=== PATIENT | female | born 1950 | race Caucasian/White ===

== ENCOUNTER 2016-10-31 09:49 | Day surgery (SDC) | payer MEDICARE ==
[~2016-10-31] VITALS: Ht 165.1 cm; Wt 83.9 kg
[~2016-10-31 09:49] MED LIST: ESTR1VAG VAGINAL; FLUT16SP NS; HYG25 PO; LOSA50TA37 PO; NYST15OI TP; OMEP20TA86 PO; Sodium Chloride LOK Flush 10 mL Syringe IV PRN; VALA1000 PO; fentaNYL-PF 50 mCg/mL 2 mL Inj IVPUSH PRN
[2016-10-31 10:10] VITALS: BP 134/77; PULSE 64; RESP 16; O2SAT 99
[2016-10-31] MEDS: 0.9% Sodium Chloride 1,000 ML IV PRN ×3 (10:51→11:14)
[2016-10-31 11:18] VITALS: BP 116/63; PULSE 63; RESP 14; O2SAT 92
[2016-10-31 11:27] VITALS: BP 113/63; PULSE 67; RESP 14; O2SAT 94
[2016-10-31 11:32] VITALS: BP 121/64; PULSE 58; RESP 16; O2SAT 99
--- NOTE | 2016-10-31 11:47 | ENDO ---
[address] [address] ENDOSCOPY PROCEDURE PATIENT: CAMILLA SALVADOR : 1950 MR#: [id number] ADMIT: 10/31/2016 JOB ID: [id number] DATE: 10/31/2016 PRIMARY PROVIDER: Floyd Gomez MD PROCEDURE: Colonoscopy. INDICATIONS: A 66-year-old female who reports for colon cancer screening. EQUIPMENT: PCF H 180 AL. SEDATION: 1. 3 mg Versed. 2. 100 mcg fentanyl. COMPLICATIONS: None identified. BOWEL PREPARATION: Fair, adequate examination. PROCEDURAL INFORMATION: After the risks and benefits were explained, written and verbal informed consent was obtained. The patient was brought into the endoscopy suite and placed into the left lateral decubitus position. Sedation was achieved using the above-stated medications with the addition of oxygen via nasal cannula. A digital rectal examination was accomplished. No significant pathology appreciated. The scope was introduced into the rectum and advanced under direct visualization to the level of the cecum as identified by the appendiceal orifice and ileocecal valve. The scope was slowly withdrawn to carefully examine the mucosa for any defects or lesions. Retroflexed views were avoided in the rectum. Multiple direct views were made through the dentate line for exclusion of pathology. The colon was decompressed. The scope removed from the patient who tolerated the procedure well. FINDINGS: The patient had extensive large mouthed diverticula throughout the entire colon. No significant polyps, mass lesions or inflammatory features identified. ENDOSCOPIC DIAGNOSES: 1. Mild hemorrhoids. 2. Goncalves-diverticulosis. RECOMMENDATIONS: Repeat colonoscopy 10 years' time, sooner should symptoms warrant.
== END 2016-10-31 23:59 | disposition home or self-care (01) ==
LOC: END 09:49
PROVIDERS: ATTEND Internal Medicine Gastroenterology
DX: Z12.11 Encounter for screening for malignant neoplasm of colon (principal); K57.30 Diverticulosis of large intestine without perforation or abscess without bleeding; K64.9 Unspecified hemorrhoids; I10 Essential (primary) hypertension; K21.9 Gastro-esophageal reflux disease without esophagitis; Z87.891 Personal history of nicotine dependence; Z79.890 Hormone replacement therapy
CPT/HCPCS: G0121; G0500; J2250; J3010; J7030